=== PATIENT | female | born 1960 | race Caucasian/White ===

== ENCOUNTER 2018-10-07 10:30 | Outpatient (RCR) | payer MEDICARE, MEDICAID ==
[2018-09-23 14:14] VITALS: BP 91/62
--- NOTE | 2018-09-27 07:17 | NUR ---
09/24/18 0815 Pt states she has a sinus infection and will not be in today.
[~2018-10-07] VITALS: Ht 170.2 cm; Wt 67.1 kg
[~2018-10-07 10:30] MED LIST: ATIVAN1 M1 PO; INDERAL LA60 M1 PO; PRISTIQ25 MG; SEROQUEL300 MG PO
--- NOTE | 2018-10-11 07:50 | NUR ---
10/07/18 1008 Patient in office stating the back of her left calf hurts. Pt states 09/26. Pt presents with redness and a small blister, possible insect bite. Pt states it itches a littel. No swelling or bruising noted. no s/s of infection noted. Pt refused ice pack stating she will come back for assessment if it worsens. Will continue to monitor pt.
[2018-11-09] MEDS ORDERED: CELEXA20 MG PO (11:36)
== END 2018-10-14 23:59 | disposition home or self-care (01) ==
LOC: PATHWAYS 10:30
PROVIDERS: ATTEND Specialist
DX: F41.1 Generalized anxiety disorder (principal); F33.8 Other recurrent depressive disorders; Z86.59 Personal history of other mental and behavioral disorders